=== PATIENT | male | born 1975 | race Caucasian/White ===

== ENCOUNTER → 2021-01-16 17:20 | Outpatient (CLI) | payer OTHER, SELFPAY ==
--- NOTE | 2021-01-16 17:25 | RAD_ITS ---
EXAM: XR RIGHT ELBOW COMPLETE, 3 OR MORE VIEWS CLINICAL INDICATION: ELBOW PAIN TECHNIQUE: Frontal, lateral and oblique views of the right elbow. This report was created using [employer] report generation technology. COMPARISON: None. FINDINGS: BONES/JOINTS: Unremarkable. There is no displacement of the anterior or posterior fat pads. No acute fracture. No subluxation. Normal alignment. Preservation of the joint space. No destructive or sclerotic lesions. SOFT TISSUES: Unremarkable. No soft tissue swelling or gas. No radiopaque foreign body. RAD/Elbow min 3 Views IMPRESSION: Negative right elbow. Electronically Signed: Ulices Parikh MD at 21:32 EST , Service support ,
== END ==
PROVIDERS: PCP Family Medicine; Referring Provider Family Medicine; Visit Provider Family Medicine
DX: M25.521 Pain in right elbow (principal)
CPT/HCPCS: 73080

== ENCOUNTER → 2024-05-31 | Outpatient (CLI) | payer BC, SELFPAY ==
--- NOTE | 2024-05-31 13:20 | RAD_ITS ---
PROCEDURE: ABDOMEN SINGLE VIEW 05/31/2024 REASON FOR EXAM: ABD PAIN, L FLANK PAIN ATT: L KIDNEY TECHNIQUE: Single view abdomen. 2 frontal views of the abdomen were obtained in order to include the entire abdomen on the study. COMPARISON: None FINDINGS: Bowel gas: A moderate amount of stool and gas is present throughout a nondistended colon. No free air is seen. Calcifications: An 8 mm calcific density is projected over the midpole of the left kidney. This may represent a renal stone. Ultrasound is recommended for further evaluation. There are 2 calcific densities in the left hemipelvic region which could represent phleboliths however other considerations would be stones in the distal left ureter or urinary bladder. These measure 3 mm and 2 mm. Bones: There are no acute fractures or dislocations. Visualized lower ribs are unremarkable. Degenerative changes of the lumbar spine are noted. RAD/Abdomen Single View IMPRESSION: There is an 8 mm calcific density projected over the midpole of the left kidney . This may represent a renal stone. Ultrasound is recommended for further evaluation. There are 2 calcific densities in the left hemipelvic region as described above . Ureteral stones or stones in the urinary bladder would be a consideration however these may represent phleboliths. Reading Location: [id number]
== END | disposition home or self-care (01) ==
LOC: RAD 13:10
PROVIDERS: PCP Family Medicine; Referring Provider Urology; Visit Provider Urology
DX: R10.84 Generalized abdominal pain (principal)
CPT/HCPCS: 74018